=== PATIENT | female | born 1965 | race African-American/Black ===

== ENCOUNTER 2018-10-08 20:25 | Emergency (ER) | payer MEDICAID ==
[~2018-10-08] VITALS: Ht 175.3 cm; Wt 74.8 kg
[2018-10-08 21:20] LABS: Basophils # (auto) 0 uL; Basophils % (auto) 0.8 % (0.0-2.0); Eosinophils # (auto) 0.1 uL; Eosinophils % (auto) 1.8 % (0.0-7.0); Hematocrit 39.6 % (36.0-46.0); Hemoglobin 13.1 g/dL (12.2-16.2); Lymphocytes # (auto) 2.3 uL; Lymphocytes % (auto) 42.6 % (10.0-50.0); Mean Corpuscular Hemoglobin 32.2 pg (28.0-32.0); Mean Corpuscular Hgb Conc. 33.1 g/dL (32.0-36.0); Mean Corpuscular Volume 97.4 fL (80.0-100.0); Monocytes # (auto) 0.3 uL; Monocytes % (auto) 5.2 % (0.0-12.0); Neutrophils # (auto) 2.7 uL; Neutrophils % (auto) 49.6 % (37.0-80.0); Nucleated Red Blood Cells % 0.1 %; Platelet Count (auto) 267 10^3/uL (140-450); Red Blood Cells 4.07 10^6/uL (4.0-5.20); White Blood Cell 5.4 10^3/uL (4.4-10.8)
[2018-10-08 21:37] LABS: Albumin 3.8 g/dL (3.4-5.0); Anion Gap 7 (5-15); Blood Urea Nitrogen 16 mg/dL (7-18); Calcium 8.5 mg/dL (8.5-10.1); Carbon Dioxide 25 mmol/L (21-32); Chloride 107 mmol/L (98-107); Glucose 94 mg/dL (74-106); Magnesium 2.1 mg/dL (1.6-2.6); Potassium 3.8 mmol/L (3.5-5.1); Sodium 139 mmol/L (136-145)
[2018-10-08 21:43] LABS: Alanine Aminotransferase 13 U/L (13-56); Alkaline Phosphatase 76 U/L (45-117); Aspartate Aminotransferase 12 U/L (15-37); BUN/Creatinine Ratio 27.6; Bilirubin, Total 0.3 mg/dL (0.2-1.0); GFR African American 141 mL/min; GFR Non-African American 116 mL/min; Total Protein 7.6 g/dL (6.4-8.2)
[2018-10-08] MEDS ORDERED: ONDANSETRON HCL 4 MG/2 ML VIAL IV ONE (23:00)
[2018-10-08] MEDS ORDERED: HYDROmorphone HCL 2 MG/ML VL IV ONE (23:00)
[2018-10-09 00:50] LABS: Urine Pregnacy Test Negative (Negative)
[2018-10-09] MEDS ORDERED: HYDROmorphone HCL 2 MG TAB PO ONE (01:00)
[2018-10-09] MEDS ORDERED: ONDANSETRON ODT 4 MG TAB PO ONE (01:00)
[2018-10-09 01:01] LABS: Urine Bacteria FEW /hpf (None Seen); Urine Blood Negative /uL (Negative); Urine Specific Gravity 1.015 (1.001-1.035); Urine WBC 8 /hpf (0 - 5)
[2018-10-09 01:04] LABS: Amphetamine Screen, Urine NEGATIVE (NEGATIVE); Barbiturate Scree,Urine NEGATIVE (NEGATIVE); Benzodiazephine Screen, Urine NEGATIVE (NEGATIVE); Cannabinoid Screen, Urine NEGATIVE (NEGATIVE); Cocaine Screen, Urine NEGATIVE (NEGATIVE); Opiate Scree,Urine NEGATIVE (NEGATIVE); Phencyclidine Screen, Urine NEGATIVE (NEGATIVE)
[2018-10-09 01:30] VITALS: BP 107/71
[2018-10-09] MEDS ORDERED: HYDROcodone-ACET 10/325MG TAB ONE (05:00)
[2018-10-09] MEDS ORDERED: HYDROcodone-ACET 10/325MG TAB PO ONE ×2 (05:15→11:15)
[2018-10-09] MEDS ORDERED: METHOCARBAMOL 500 MG TAB ONE (09:30)
[2018-10-09] MEDS ORDERED: METHOCARBAMOL 500 MG TAB PO ONE (09:30)
--- NOTE | 2018-10-09 15:12 | NUR ---
assessment Patient is discharged from ER and needs transport. I have faxed [facility] form to [facility]. Per Shanthi at [facility] patients medi-[facility] is from [place] and linked to [employer]. Per Shanthi she needs an authorization from [employer]. Sigrid case liner is working on auth. Addendum: 10/09/18 at 1516 by Susan HANKINS Amended: Links added.
--- NOTE | 2018-10-09 15:41 | NUR ---
TRANSPORT: PER EPHRAIM WITH [facility] [phone] PH #, SHE STATED PT WILL BE PICKED UP THE LATEST 4 HRS FROM NOW. SHE STATED IT IS USUALLY SOONER [facility] [employer] OPERATOR TIME . I INFORMED ELIO MICHELLE RN. ELIO RODRIGUEZ RN CONFIRMED PT''S ADDRESS, PH #, PT FULL CODE, NO EQUIPMENT, PARA PLEGIC, NO STEPS TO RESIDENCE. THIS INFO REQUIRED BY TRANSPORTATION SERVICE AND GIVEN TO EPHRAIM.
--- NOTE | 2018-10-09 16:10 | NUR ---
LATE ENTRY: PER ELIO'S NOTE THIS AM. I WAS CALLED BY ELIO RN FOR INFORMATION TO HOW TO GET PT HOME, SINCE ALL THE TRANSPORT COMPANIES WANTED ESTES. STATED PT HAD MEDICAL INSUSRANCE. I TOLD ELIO I WOULD CALL KAREN AND GET BACK TO HER. I CALLED KAREN AND SHE STATED [facility] AND IF THEY COULD NOT DO THE TRANSPORT, THEN FAMILY WOULD HAVE TO PAY. I CALLED ELIO AND RELAYED THIS INFORMATION. I WAS NOT AWARE OF ANY MORE PROBLEM WITH TRANSPORT UNTIL I WAS CALLED BY Cristina HENSLEY AT 1300 HRS TO WHY PT WAS STILL THERE. I CALLED ELIO AND ASKED HER WHAT WAS GOING ON WITH PT AND SHE STATED THAT TRANSPORT COULD NOT TAKE PT AND FAMILY COULD NOT PAY AND THEY DON"T HAVE A CARE.. I CALLED KAREN TO DO SS CONSULT FOR SS FOR FAMILY SITUATION AND AND TRANSPORTATION ISSUE. KAREN SS CALLED ME BACK AT 1500 HRS AND GAVE ME A PHONE # ( SUBSEQUENT RN NOTE) [facility] TO CALL TO SET UP TRANSPORT. SEE SUBSEQUENT NOTE OF ZHAO FOR TRANSPORT INFORMATION
--- NOTE | 2018-10-09 16:18 | NUR ---
[facility] [phone] WILL BRICKMASON SUPERVISOR PT FROM 1930 HRS TO 2000HRS. ELIO RODRIGUEZ RN INFORMED
== END 2018-10-09 20:04 | disposition home or self-care (01) ==
LOC: ER 20:25
DX: S39.012A Strain of muscle, fascia and tendon of lower back, initial encounter (principal); M47.897 Other spondylosis, lumbosacral region; X50.9XXA Other and unspecified overexertion or strenuous movements or postures, initial encounter; Y93.89 Activity, other specified; Y99.8 Other external cause status; Y92.89 Other specified places as the place of occurrence of the external cause
CPT/HCPCS: 36415; 74176; 80053; 80307; 81001; 81025; 83735; 84484; 85025; 93005; 99284; Q0162